=== PATIENT | male | born 1995 | race Caucasian/White ===

== ENCOUNTER → 2018-02-17 | Outpatient (CLI) | payer BC ==
[2018-02-17 14:15] LABS: FREE T4 1.06 ng/dL (0.76-1.46); THYROID STIM HORMONE (TSH) 3.016 uIU/mL (0.358-3.740)
== END | disposition home or self-care (01) ==
LOC: LAB 10:25
PROVIDERS: ATTEND Pediatrics
DX: Z13.29 Encounter for screening for other suspected endocrine disorder (principal); Z13.220 Encounter for screening for lipoid disorders
CPT/HCPCS: 36415; 80061; 83036; 84439; 84443

== ENCOUNTER 2019-07-17 14:51 | Emergency (ER) | payer BC ==
[~2019-07-17] VITALS: Ht 180.3 cm; Wt 130.0 kg
[2019-07-17 14:54] VITALS: BP 157/89
--- NOTE | 2019-07-17 15:34 | PHYS DOC ---
Past History Past Medical History: No Pertinent History Past Surgical History: Other Additional Past Surgical Histo: RIGHT ARM SURGERY Alcohol Use: None General Adult EDM: Chief Complaint: MECHANICAL FALL HPI: HPI: 23-year-old male presents with left calf pain. The patient slipped in the bathtub and slammed the medial side of his calf into the side of the tub. It hurt for about a minute. The pain was severe at the time but it rapidly improved. It is not painful now, but he has a large area of swelling that is 3 cm x 7 cm. There is no ecchymosis. He is able to walk without difficulty. He does want to have it checked out as he has never had anything like this before. Denies fever chills. Has no other injuries. Review of Systems: Review of Systems: Constitutional: Denies fever or chills Eyes: Denies change in visual acuity HENT: Denies nasal congestion or sore throat Respiratory: Denies cough or shortness of breath Cardiovascular: Denies chest pain or edema GI: Denies abdominal pain, nausea, vomiting, bloody stools or diarrhea : Denies dysuria Musculoskeletal: Swelling of the medial left lower leg Integument: Denies rash Neurologic: Denies headache, focal weakness or sensory changes Endocrine: Denies polyuria or polydipsia Lymphatic: Denies swollen glands Psychiatric: Denies depression or anxiety Heart Score: Risk Factors: Risk Factors: DM, Current or recent (<one month) smoker, HTN, HLP, family history of CAD, obesity. Risk Scores: Score 0 - 3: 2.5% MACE over next 6 weeks - Discharge Home Score 4 - 6: 20.3% MACE over next 6 weeks - Admit for Clinical Observation Score 7 - 10: 72.7% MACE over next 6 weeks - Early Invasive Strategies Allergies: Allergies: Allergies Coded Allergies Type Severity Reaction Last Updated Verified Penicillins Allergy Unknown 07/17/19 Yes Physical Exam: PE: Constitutional: Well developed, well nourished, no acute distress, non-toxic appearance. [] HENT: Normocephalic, atraumatic, bilateral external ears normal, oropharynx moist, no oral exudates, nose normal. [] Eyes: PERRLA, EOMI, conjunctiva normal, no discharge. [] Neck: Normal range of motion, no tenderness, supple, no stridor. [] Cardiovascular:Heart rate regular rhythm, no murmur [] Lungs & Thorax: Bilateral breath sounds clear to auscultation [] Abdomen: Bowel sounds normal, soft, no tenderness, no masses, no pulsatile masses. [] Skin: Warm, dry, no erythema, no rash. [] Back: No tenderness, no CVA tenderness. [] Extremities: 3 cm x 7 cm area of firmness on the left radial calf consistent with contusion and possible hematoma. [] Neurologic: Alert and oriented X 3, normal motor function, normal sensory function, no focal deficits noted. [] Psychologic: Affect normal, judgement normal, mood normal. [] Current Patient Data: Vital Signs: Vital Signs Date Time Temp Pulse Resp B/P (MAP) Pulse Ox O2 Delivery O2 Flow Rate FiO2 07/17/19 14:54 97.9 92 18 157/89 (111) 98 Room Air EKG: EKG: [] Radiology/Procedures: Radiology/Procedures: [] Course & Med Decision Making: Course & Med Decision Making Pertinent Labs and Imaging studies reviewed. (See chart for details) The patient's wound may have caused a hematoma. He has minimal pain. I believe this will heal on its own. He is stable for discharge at this time. I have given him anticipatory guidance in case it worsens the symptoms to look for for compartment syndrome though I feel this is very unlikely. [] Leesaon Disclaimer: Osvaldo Disclaimer: This electronic medical record was generated, in whole or in part, using a voice recognition dictation system. Departure Departure: Impression: Primary Impression: Pain of left calf Additional Impression: Hematoma of left lower leg Disposition: 01 HOME/RESIDENCE PRIOR TO ADM Condition: STABLE Referrals: FAUSTO HEART MD (PCP) Patient Instructions: Hematoma, [id number] FRANK MOURA DO July 17, 2019 15:34
== END 2019-07-17 15:40 | disposition home or self-care (01) ==
LOC: ER 14:51
DX: S80.12XA Contusion of left lower leg, initial encounter (principal); Z88.0 Allergy status to penicillin; W18.49XA Other slipping, tripping and stumbling without falling, initial encounter; Y93.89 Activity, other specified; Y92.89 Other specified places as the place of occurrence of the external cause; Y99.8 Other external cause status
CPT/HCPCS: 99281